=== PATIENT | male | born 1980 | race African-American/Black ===

== ENCOUNTER 2016-10-18 08:45 | Emergency (ER) | payer SELFPAY ==
--- NOTE | 2016-10-18 09:30 | ER Document Report ---
HPI - HPI Patient complains to provider of: Trichomonas exposure Pain Level: 1 Context: She presents to the emergency department with Trichomonas exposure. is in the emergency department yesterday and diagnosed with trichomonas. He is here to be checked. He denies all symptoms denies penile discharge. Denies pain with void. Denies other symptoms such as fever vomiting diarrhea. Associated Symptoms: None Exacerbated by: Denies Relieved by: Denies Similar symptoms previously: No Recently seen / treated by doctor: No - DERM Skin Color: Normal Past Medical History - General Information source: Patient - Social History Smoking Status: Current Every Day Smoker Cigarette use (# per day): Yes Chew tobacco use (# tins/day): No Frequency of alcohol use: None Drug Abuse: None Lives with: Family Family History: None Patient has suicidal ideation: No Patient has homicidal ideation: No - Medical History Medical History: Negative Renal/ Medical History: Denies: Hx Peritoneal Dialysis Surgical Hx: Negative - Immunizations Hx Diphtheria, Pertussis, Tetanus Vaccination: Yes Vertical Provider Document - CONSTITUTIONAL Agree With Documented VS: Yes Exam Limitations: No Limitations General Appearance: WD/WN, No Apparent Distress - INFECTION CONTROL TRAVEL OUTSIDE OF THE [place] IN LAST 30 DAYS: No - HEENT HEENT: Atraumatic, Normocephalic - NECK Neck: Normal Inspection, Supple. negative: Lymphadenopathy-Left, Lymphadenopathy-Right - RESPIRATORY Respiratory: Breath Sounds Normal, No Respiratory Distress O2 Sat by Pulse Oximetry: 99 - CARDIOVASCULAR Cardiovascular: Regular Rate - GI/ABDOMEN Gastrointestinal: Abdomen Soft, Abdomen Non-Tender - REPRODUCTIVE Male Genitalia: Normal Inspection - MUSCULOSKELETAL/EXTREMETIES Musculoskeletal/Extremeties: MAEW, FROM - NEURO Level of Consciousness: Awake, Alert, Appropriate Motor/Sensory: No Motor Deficit - DERM Integumentary: Warm, Dry Course - Re-evaluation Re-evalutation: 10/18/16 Patient was instructed on negative trichomonas. Patient was also provided with written information on Trichomonas. Patient was instructed on hematuria importance of follow-up for recheck next week. Patient and both instructed on the health department. They both verbalized understanding. - Vital Signs Vital signs: Temp Pulse Resp BP Pulse Ox 98.2 F 62 16 123/70 99 10/18/16 08:55 10/18/16 08:55 10/18/16 08:55 10/18/16 08:55 10/18/16 08:55 Discharge - Discharge Clinical Impression: Exposure to trichomonas, Elevated blood pressure reading Condition: Stable Disposition: HOME, SELF-CARE Instructions: [facility] Department, Hematuria ([facility]) Additional Instructions: *You have been evaluated for trichomonas exposure, hematuria *Cultures are pending, you will be contacted should you need antibiotics *Follow up with the health department for recheck *Follow-up with a primary care provider in one week to recheck your urine *Return to ED for worsening condition, changes, needsMen In men, T. vaginalis infection is asymptomatic in over three-quarters of cases and often transient (spontaneous resolution within 10 days) [8,13]. However, untreated infection can persist for months [14]. Symptoms, when present, are the same as those for urethritis from any cause and consist of a clear or mucopurulent urethral discharge and/or dysuria. They may also have mild pruritus or burning sensation in the penis after sexual intercourse Monitor your blood pressure. Your blood pressure was elevated today. This may be because you were anxious, in pain or because you need medication. It is important to follow up with your primary care provider for full evaluation. Forms: Elevated Blood Pressure, Return to Work
[2016-10-18 09:56] LABS: APPEARANCE,URINE SLIGHTLY-CLOUDY; BILIRUBIN,URINE NEGATIVE (NEGATIVE); GLUCOSE, URINE NEGATIVE (NEGATIVE); KETONES,URINE NEGATIVE (NEGATIVE); LEUKOCYTE ESTERASE,URINE NEGATIVE (NEGATIVE); NITRITE,URINE NEGATIVE (NEGATIVE); PROTEIN,URINE NEGATIVE (NEGATIVE); URINE SPECIFIC GRAVITY 1.024; UROBILINOGEN,URINE NEGATIVE mg/dL (<2.0)
[2016-10-18 10:59] VITALS: BP 121/78
[2016-10-18 11:15] LABS: CHLAM PCR NOT DETECTED (NOT DETECT)
== END 2016-10-18 10:59 | disposition home or self-care (01) ==
LOC: ER 08:45
DX: Z20.2 Contact with and (suspected) exposure to infections with a predominantly sexual mode of transmission (principal); F17.210 Nicotine dependence, cigarettes, uncomplicated; R03.0 Elevated blood-pressure reading, without diagnosis of hypertension
CPT/HCPCS: 81001; 87210; 87491; 87591; 99283